=== PATIENT | male | born 1985 | race African-American/Black ===

== ENCOUNTER 2017-07-30 09:12 | Emergency (ER) | payer MEDICAID ==
[~2017-07-30] VITALS: Ht 172.7 cm; Wt 59.0 kg
[2017-07-30] MEDS ORDERED: ACETAMINOPHEN WITH CODEINE 300/30MG TABLET PO ONE (11:00)
[2017-07-30 12:20] VITALS: BP 122/85
== END 2017-07-30 13:21 | disposition home or self-care (01) ==
LOC: ER 12:36
DX: S52.91XA Unspecified fracture of right forearm, initial encounter for closed fracture (principal); F17.200 Nicotine dependence, unspecified, uncomplicated; W01.0XXA Fall on same level from slipping, tripping and stumbling without subsequent striking against object, initial encounter; Y93.89 Activity, other specified; Y92.814 Boat as the place of occurrence of the external cause
CPT/HCPCS: 29125; 70100; 73080; 73090; 73110; 99284